=== PATIENT | female | born 1955 | race Native Hawaiian/Other Pacific Islander ===

== ENCOUNTER 2018-09-28 07:39 | Emergency (ER) | payer OTHER ==
[2018-09-28 07:43] VITALS: TEMP 98.4
[2018-09-28] MEDS ORDERED: Lidocaine 2% MPF (5 ml) Inj ONE (07:56)
[2018-09-28] MEDS ORDERED: Tdap Vaccine 0.5 ml Vial (10-64 yrs) IM ONE ×2 (08:06→09:30)
[2018-09-28] MEDS ORDERED: Bacitracin 500 Units/gm Oint Foilpak UD ONE (08:07)
[2018-09-28] MEDS ORDERED: Bacitracin Ointment 30 GM TUBE TOP STA (08:08)
[2018-09-28] MEDS ORDERED: Lidocaine 2% Inj (20ml) INFIL ONE (08:12)
--- NOTE | 2018-09-28 08:45 | C.PDOC ---
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 Patient states that there was bleeding. Patient denies having weakness and numbness in right hand. Time Seen by Provider: 09/28/18 07:44 Chief Complaint (Nursing): Abnormal Skin Integrity History Per: Patient History/Exam Limitations: no limitations Onset/Duration Of Symptoms: Hrs Current Symptoms Are (Timing): Still Present Severity: Moderate Past Medical History Reviewed: Historical Data, Nursing Documentation, Vital Signs Vital Signs: Last Vital Signs Temp 98.4 F 09/28/18 07:40 Pulse 91 H 09/28/18 07:40 Resp 17 09/28/18 07:40 BP 125/85 09/28/18 07:40 Pulse Ox 97 09/28/18 07:40 - Medical History PMH: HTN Other Surgeries: Hx of surgeries Family History: States: No Known Family Hx - Social History Hx Tobacco Use: No Hx Alcohol Use: No Hx Substance Use: No - Immunization History Hx Tetanus Toxoid Vaccination: No Hx Influenza Vaccination: Yes Hx Pneumococcal Vaccination: No Review Of Systems Except As Marked, All Systems Reviewed And Found Negative. Constitutional: Negative for: Fever, Chills Skin: Positive for: Other (right 5th digit laceration) Physical Exam - Physical Exam Appears: Non-toxic, No Acute Distress Skin: Normal Color, Warm, Dry, Other (2 cm laceration to right hand 5th digit with active venous bleeding) Head: Atraumatic, Normacephalic Eye(s): bilateral: Normal Inspection Nose: Normal Oral Mucosa: Moist Neck: Supple Chest: Symmetrical Neurological/Psych: Oriented x3, Normal Speech ED Course And Treatment O2 Sat by Pulse Oximetry: 97 (RA) Pulse Ox Interpretation: Normal Laceration - Laceration Repair Right Hand- 5th Digit Wound Length (In cm): 2 cm Description Of Wound: Linear Wound Cleansed With: Betadine, Sterile Saline Anesthesia: Lidocaine 2% Wound Examination: Irrigated With Saline, No FB With Wound Exploration Wound Closure: Suture Suture Technique And Material Used: Nylon (5-0 Nylon) Wound Complexity: Simple Medical Decision Making Medical Decision Making: Laceration Repair has been performed. Patient tolerated well. Patient has been discharged and instructed to return to ER for suture removal in 14 days. Disposition - Disposition Disposition: HOME/ ROUTINE Disposition Time: :42 Condition: STABLE Additional Instructions: return to er in 14 days for removal. return immediately with any worsening. Prescriptions: Cephalexin [cephalexin] 500 mg PO QID #28 cap Instructions: Laceration Repair With Stitches (DC) Forms: [employer] (Kenyan) - Clinical Impression Clinical Impression: Laceration - Scribe Statement The provider has reviewed the documentation as recorded by the Murray Maddox Provider Attestation: All medical record entries made by the Murray were at my direction and personally dictated by me. I have reviewed the chart and agree that the record accurately reflects my personal performance of the history, physical exam, medical decision making, and the department course for this patient. I have also personally directed, reviewed, and agree with the discharge instructions and disposition.
[2018-09-28 09:17] VITALS: BP 126/72; PULSE 87; RESP 20
[2018-09-28 14:58] VITALS: O2SAT 97
== END 2018-09-28 09:17 | disposition home or self-care (01) ==
LOC: C.ER 07:39
DX: S61.216A Laceration without foreign body of right little finger without damage to nail, initial encounter (principal); W45.8XXA Other foreign body or object entering through skin, initial encounter; Y92.238 Other place in hospital as the place of occurrence of the external cause; Y99.0 Civilian activity done for income or pay

== ENCOUNTER 2018-10-14 12:18 | Emergency (ER) | payer OTHER ==
[2018-10-14 12:24] VITALS: BP 115/75; PULSE 97; RESP 16; TEMP 99.3; O2SAT 98
[2018-10-14] MEDS ORDERED: Bacitracin Ointment 30 GM TUBE TOP STA (14:08)
[2018-10-14] MEDS ORDERED: Bacitracin 500 Units/gm Oint Foilpak UD ONE (14:11)
--- NOTE | 2018-10-14 16:02 | C.PDOC ---
History Of Present Illness 63 y/o female presents to the ER for suture removal from right hand 5th digit. Patient states that she was evaluated for a laceration in [facility] 15 days ago and she has suture placed. Patient denies having fever and chills. Chief Complaint (Nursing): Suture/Staple Removal History Per: Patient History/Exam Limitations: no limitations Past Medical History Reviewed: Historical Data, Nursing Documentation, Vital Signs Vital Signs: Last Vital Signs Temp 99.3 F 10/14/18 12:23 Pulse 97 H 10/14/18 12:23 Resp 16 10/14/18 12:23 BP 115/75 10/14/18 12:23 Pulse Ox 98 10/14/18 12:23 - Medical History PMH: HTN Other Surgeries: Hx of surgeries Family History: States: No Known Family Hx - Social History Hx Tobacco Use: No Hx Alcohol Use: No Hx Substance Use: No - Immunization History Hx Tetanus Toxoid Vaccination: No Hx Influenza Vaccination: Yes Hx Pneumococcal Vaccination: No Review Of Systems Except As Marked, All Systems Reviewed And Found Negative. Constitutional: Negative for: Fever, Chills Physical Exam - Physical Exam Appears: Non-toxic, No Acute Distress Skin: Normal Color, Warm, Dry, Other (right hand 5th digit: sutures intact) Head: Atraumatic, Normacephalic Eye(s): bilateral: Normal Inspection Nose: Normal Oral Mucosa: Moist Neck: Supple Chest: Symmetrical Neurological/Psych: Oriented x3, Normal Speech ED Course And Treatment O2 Sat by Pulse Oximetry: 98 (RA) Pulse Ox Interpretation: Normal Medical Decision Making Medical Decision Making: Sutures have been removed successfully. Patient has been tolerated well. Patient has been discharged home. Disposition - Disposition Disposition: HOME/ ROUTINE Disposition Time: 13:50 Condition: GOOD Additional Instructions: ELAN POWELL, thank you for letting us take care of you today. Your provider was Jose Rafael Smith DO and you were treated for STITCH REMOVAL. The emergency medical care you received today was directed at your acute symptoms. If you were prescribed any medication, please fill it and take as directed. It may take several days for your symptoms to resolve. Return to the Emergency Department if your symptoms worsen, do not improve, or if you have any other problems. Please contact your doctor or call one of the physicians/clinics you have been referred to that are listed on the Patient Visit Information form that is included in your discharge packet. Bring any paperwork you were given at discharge with you along with any medications you are taking to your follow up visit. Our treatment cannot replace ongoing medical care by a primary care provider outside of the emergency department. Thank you for allowing the [facility] team to be part of your care today. Keep area clean and dry until fully healed. Instructions: Stitches Removal Forms: [employer] (Romanian) - Clinical Impression Clinical Impression: Removal of suture - Scribe Statement The provider has reviewed the documentation as recorded by the Brandinibmaribel Maddox Provider Attestation: All medical record entries made by the Brandinibe were at my direction and personally dictated by me. I have reviewed the chart and agree that the record accurately reflects my personal performance of the history, physical exam, medical decision making, and the department course for this patient. I have also personally directed, reviewed, and agree with the discharge instructions and disposition.
== END 2018-10-14 14:09 | disposition home or self-care (01) ==
LOC: C.ER 12:18
DX: Z48.02 Encounter for removal of sutures (principal)

== ENCOUNTER 2018-12-25 08:37 | Outpatient (CLI) | payer OTHER | END 2018-12-25 08:38 | disposition home or self-care (01) | LOC: C.LAB 08:37 | DX: E78.2 Mixed hyperlipidemia (principal); E55.9 Vitamin D deficiency, unspecified ==